=== PATIENT | female | born 2005 | race Caucasian/White ===

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

== ENCOUNTER 2024-01-10 19:55 | Emergency (ER) | payer OTHER, SELFPAY ==
--- NOTE | ~2024-01-10 | XR_ITS ---
HISTORY: cat bite yest; swelling; eval FB COMPARISON: None TECHNIQUE: 2 views of the left hand were performed. FINDINGS: No acute fracture is identified. The joint spaces are preserved. The carpal arcs are intact. Trace negative ulnar variance is detected. Bone mineralization is unremarkable. Subtle tissue swelling of the dorsum of the right hand and the proximal second digit. No radiopaque foreign body is identified. IMPRESSION: Soft tissue swelling, without radiopaque foreign body or acute fracture within the left hand, as nathan palma above. Reviewed, dictated and finalized at location A. [facility] [employer] IMPRESSION: Soft tissue swelling, without radiopaque foreign body or acute fracture within the left hand, as detailed above.
[2024-01-10 20:00] VITALS: BP 143/80; PULSE 90; RESP 16; TEMP 36.8; O2SAT 100
--- NOTE | 2024-01-10 20:10 | ED.ANIMALBIT ---
HPI - Animal Bite General Chief Complaint: Animal Bite Stated Complaint: cat attack Time Seen by Provider: 01/10/24 20:08 Source: patient Mode of arrival: ambulatory Limitations: no limitations History of Present Illness HPI narrative: [id number] female presents with pain and swelling sustained after a cat bite and scratch injury that occurred yesterday approximately 4:00 p.m.. She presented to urgent care. No imaging was performed although she was prescribed Augmentin and 1st dose this morning. Her last tetanus shot was in 2021. Also to dose of Tylenol. This is a CT she is fostering and it is up to date on its shots. Related Data Home Medications Medication Instructions Recorded Confirmed propranolol 40 mg tablet 40 mg PO Q12H 01/10/24 Allergies Allergy/AdvReac Type Severity Reaction Status Date / Time [id number] Antimigraine AdvReac Joint Pain Verified 01/10/24 19:56 Agents PMFSH Past Medical History Medical History Anxiety Depression Kyphosis Migraine PCOS (polycystic ovarian syndrome) Right hand dominant Surgical History Surgical History History of adenectomy Hx of tonsillectomy Family History Family History Mother Hypertension Depression Heart problem Alcoholism Grandparent Asthma Diabetes mellitus Hypertension Cerebrovascular accident Thyroid disorder Social History Social History (Updated 07/21/23 @ 15:25 by Varsha Ly MA) Smoking status: Never smoker Alcohol intake: current Alcohol use details: occasionally Substance use: never Do You Feel Safe in your Home?: Yes Lack of Transportation: No Lack of Food: Sometimes True Current Housing: I Have Housing Concerned About Future Housing: No Difficulty Paying Gas/Electric Bills: No Difficulty Paying for Meds: No Currently Unemployed: No Education: High School Diploma/GED Difficulty w/ Childcare or Family Care: No Living arrangements: with roommate(s) Occupation/Education: student Gender identity (if verbalized by the patient): Female Sexual Orientation (if Verbalized by the Patient): Straight or Heterosexual Exam Narrative: GENERAL: Well-appearing, well-nourished, and in no acute distress. HEAD: Normocephalic, atraumatic. EYES: Non injected, non icteric ENT: Nares clear, no rhinorrhea or epistaxis. NECK: Supple. CHEST: Speaking in full sentences. No respiratory distress. HEART: Regular rate and rhythm. Capillary refill intact in distal fingers. ABDOMEN: Soft, nondistended. EXTREMITIES: Finger is not held in fixed flexion or extension. She is able to extend these digits. Has some difficulty with flexion SKIN: Warm, dry. Scattered superficial abrasions/lacerations on bilateral forearms (L > R). Patient has warm tender erythema and swelling along the dorsum of her right hand involved in a MCP of digits 2 and 3. NEURO: No focal deficits. Alert and oriented x3. PSYCH: Normal mood and affect. Course Vital Signs Vital signs: Vital Signs Temperature 98.3 F 01/10/24 20:00 Pulse Rate 90 01/10/24 20:00 Respiratory Rate 16 01/10/24 20:00 Blood Pressure 143/80 H 01/10/24 20:00 Pulse Oximetry 100 01/10/24 20:00 Oxygen Delivery Room Air 01/10/24 20:00 Temperature 98.3 F 01/10/24 20:00 Pulse Rate 85 01/10/24 23:31 Respiratory Rate 16 01/10/24 23:31 Blood Pressure 128/76 01/10/24 23:31 Pulse Oximetry 100 01/10/24 23:31 Oxygen Delivery Room Air 01/10/24 20:00 MDM - Animal Bite MDM Narrative Medical decision making narrative: Patient presents with pain and swelling particularly in right hand after sustaining cat bite and scratches yesterday at approximately 4:00 p.m. she visited urgent care and a dose of Augmentin this morning but has continued to have swelling. Last tetanus was in 2021. In the emergency department she is afebrile with vital signs notable for hypertension. [place] signs for flexor sheath infection (flexor tenosynovitis) Finger held in slight flexion: No Fusiform swelling of affected digit: No Tenderness along flexor tendon sheath: Yes Pain with passive extension of digit: Yes Mild leukocytosis. Patient reassessed. No further swelling. Pain improved. I did discuss patient with Dr. Hoffman / plastic surgeon. Given they have only had 1 dose of Augmentin, reasonable to discharge with outpatient care recommendations, advise continuing PO Augmentin, and give return precautions. Stable for discharge. Differential Diagnosis Differential diagnosis: Likely bite by animal, cat bite and other (Cellulitis, considered flexor tenosynovitis) Lab Data Attestation: I reviewed the patient's lab results. Lab results narrative: Normal renal function 01/10/24 21:31 01/10/24 21:31 Labs: Lab Results 01/10/24 Range/Units 21:31 WBC 11.0 H (4.5-10.0) K/mm3 RBC 4.86 (4.2-5.4) M/mm3 Hgb 14.0 (12.0-15.0) g/dL Hct 43.8 (37.0-47.0) % MCV 90.1 (80-100) fl MCH 28.8 (26-34) pg MCHC 32.0 (32-36) g/dl RDW 13.4 (11.5-14.5) % Plt Count 325 (150-375) k/mm3 MPV 9.7 (7.4-10.4) fl Immature Gran % (Auto) 0.2 (0-0.5) % Neut % (Auto) 67.7 (45.5-73.1) % Lymph % (Auto) 23.3 (18.3-44.2) % [place] % (Auto) 7.6 (2.6-8.5) % Eos % (Auto) 1.0 (0-4.4) % Baso % (Auto) 0.2 (0.2-1.2) % Lymph # (Auto) 2.57 (0.9-3.2) K/mm3 [place] # (Auto) 0.8 H (0.1-0.6) K/mm3 Eos # (Auto) 0.1 (0-0.3) K/mm3 Baso # (Auto) 0.0 (0.0-0.1) K/mm3 Abs Immat Gran (auto) 0.02 (0.00-0.031) K/mm3 Absolute Neuts (auto) 7.5 H (1.3-6.7) K/mm3 Absolute Nucleated RBC 0.000 (0.0-0.012) K/mm3 Nucleated RBC % 0.0 (0.0-0.2) % PT Cancelled INR Cancelled APTT Cancelled Sodium 138 (134-143) mmol/L Potassium 3.9 (3.4-5.0) mmol/L Chloride 102 (98-107) mmol/L Carbon Dioxide 26 (22-30) mmol/L Anion Gap 10 (4-12) mmol/L BUN 16 (8-21) mg/dL Creatinine 0.60 L (0.7-1.0) mg/dL Estim Creat Clear Calc 176 ml/min Estimated GFR > 60 (59 - ) Glucose 81 (65-110) mg/dL Calcium 9.6 (8.9-10.7) mg/dL Imaging Data Attestation: I personally reviewed and interpreted this imaging study as follows: My impression: Suspect osteophyte though possible foreign body appreciable plain film imaging Radiologist's impression: Impressions Hand X-Ray 01/10/24 22:46 IMPRESSION: Soft tissue swelling, without radiopaque foreign body or acute fracture within the left hand, as detailed above. Discharge Plan Discharge Clinical Impression: Cat bite involving extremity, Leukocytosis Patient Disposition: Home, Self-Care Condition: Stable Instructions: Antibiotic Form, Animal Bite (ED), Leukocytosis (ED) Additional Instructions: Use warm compresses and elevate the affected area above the level of the heart when possible. Continue taking your Augmentin antibiotic as prescribed. Follow up with plastic/hand surgeon if necessary and return to the ED if any new/worsening symptoms such as streaking or spreading redness, fever >100.4F, unable to bend/move fingers, etc. It is safe to continue taking acetaminophen/Tylenol (maximum 4000mg/day) for pain. Prescriptions: New acetaminophen 500 mg capsule 1,000 mg PO Q6H PRN (Reason: pain) Qty: 30 0RF No Action alprazolam 1 mg tablet 1 mg PO DAILY PRN (Reason: anxiety) Qty: 30 0RF medroxyprogesterone [Provera] 10 mg tablet 10 mg PO DAILY Qty: 10 6RF metformin 500 mg tablet 1,000 mg PO BIDWMEAL 90 Days Qty: 360 3RF Rx Instructions: start out taking 1 tablet x2 wks, then increase to 1 tablet BID x 2 weeks, then 1 tab qAM/2 tabs qPM x 2 weeks, then continue taking 2 tabs BID thereafter propranolol 40 mg Tablet 40 mg PO Q12H [id number] mg capsule 1 cap PO Q4H PRN (Reason: migraine headache) Qty: 30 2RF Follow-up/Referrals: Ladonna Hoffman MD [Physician] - (Plastic surgery) Alok Vazquez MD [Primary Care Provider] - Stand Alone Forms: Work/School Release IP Time of Disposition: 23:06
--- NOTE | 2024-01-10 21:32 | PC.NURSE ---
R. hand swollen and red. Bilateral forearms have puncture wounds.
[2024-01-10] MEDS: HYDROcodone/acetaminophen (*CRX) 5-325 MG TABLET 1 TAB PO (21:41)
[2024-01-10] MEDS: AMPICILLIN SULB 3 GM/NS 100 ML 3 GM/100 ML VIAL IVPB (21:42)
[2024-01-10 21:43] LABS: Basophils Percent Auto 0.2 % (0.2-1.2); Eosinophils Absolute Auto 0.1 K/mm3 (0-0.3); Hematocrit 43.8 % (37.0-47.0); Immature Granulocyte Absolute 0.02 K/mm3 (0.00-0.031); Immature Granulocyte Percent A 0.2 % (0-0.5); Lymphocytes Absolute Auto 2.57 K/mm3 (0.9-3.2); Lymphocytes Percent Auto 23.3 % (18.3-44.2); Mean Corpuscular Hemoglobin 28.8 pg (26-34); Mean Corpuscular Volume 90.1 fl (80-100); Mean Platelet Volume 9.7 fl (7.4-10.4); Monocytes Absolute Auto 0.8 K/mm3 (0.1-0.6); Monocytes Percent Auto 7.6 % (2.6-8.5); Neutrophils Absolute Auto 7.5 K/mm3 (1.3-6.7); Neutrophils Percent Auto 67.7 % (45.5-73.1); Platelet Count Result 325 k/mm3 (150-375); Red Blood Count 4.86 M/mm3 (4.2-5.4); Red Cell Distribution Width 13.4 % (11.5-14.5)
[2024-01-10 21:53] LABS: Anion Gap 10 mmol/L (4-12); Blood Urea Nitrogen 16 mg/dL (8-21); Calcium 9.6 mg/dL (8.9-10.7); Carbon Dioxide 26 mmol/L (22-30); Chloride 102 mmol/L (98-107); Estimated CRCL calculation 176 ml/min; Estimated Glomerular Filt Rate > 60; Glucose 81 mg/dL (65-110); Potassium 3.9 mmol/L (3.4-5.0); Sodium 138 mmol/L (134-143)
[2024-01-10 23:31] VITALS: BP 128/76; PULSE 85; RESP 16; O2SAT 100
== END 2024-01-10 23:50 | disposition home or self-care (01) ==
PROVIDERS: Emergency Provider Student in an Organized Health Care Education/Training Program; PCP Emergency Medicine
DX: S61.451A Open bite of right hand, initial encounter (principal); W55.01XA Bitten by cat, initial encounter; F41.8 Other specified anxiety disorders; D72.829 Elevated white blood cell count, unspecified
CPT/HCPCS: 36415; 73120; 80048; 85025; 87040; 96365; 99284; A9270; J0295

== ENCOUNTER 2024-08-25 08:54 | Outpatient (CLI) | payer OTHER, SELFPAY ==
[2024-08-25 18:24] LABS: Alanine Aminotransferase 51 U/L (6-35); Albumin Level 4.2 g/dL (3.7-5.6); Alkaline Phosphatase 41 U/L (45-116); Anion Gap 9 mmol/L (4-12); Aspartate Amino Transferase 45 U/L (14-36); Bilirubin,Total 0.7 mg/dL (0.2-1.3); Blood Urea Nitrogen 10 mg/dL (8-21); Calcium 9.3 mg/dL (8.9-10.7); Carbon Dioxide 27 mmol/L (22-30); Chloride 102 mmol/L (98-107); Cholesterol 207 mg/dL (0-200); Estimated Glomerular Filt Rate > 60; Glucose 74 mg/dL (65-110); HDL Direct 38 mg/dL; Potassium 4.6 mmol/L (3.4-5.0); Sodium 138 mmol/L (134-143); Triglycerides 100 mg/dL (<150)
[2024-08-25 18:29] LABS: Rheumatoid Factor. < 12.0 IU/ML (<12)
[2024-08-25 18:35] LABS: LDL Cholesterol Direct 135 mg/dL
[2024-08-25 18:47] LABS: Erythrocyte Sedimentation Rate 12 mm/hr (0-20)
[2024-08-25 18:48] LABS: Hemoglobin A1C. 5.6 % (<5.7)
[2024-08-26 07:58] LABS: ANA Cascade Screen POSITIVE (NEGATIVE); Chromatin (Nucleosomal) Ab <1.0 NEG AI (<1.0 NEG); Chromatin Antibody Charge YES; DNA (ds) Antibody Charge YES; RNP Antibody 1.8 POS AI (<1.0 NEG); RNP Antibody Charge YES; Sm Antibody <1.0 NEG AI (<1.0 NEG); Sm Antibody Charge YES; Sm/RNP Antibody <1.0 NEG AI (<1.0 NEG); Sm/RNP Antibody Charge YES
== END 2024-08-25 08:55 | disposition home or self-care (01) ==
LOC: ANHGOSHLAB 08:56
PROVIDERS: PCP Family Medicine; Visit Provider Family Medicine
DX: E88.819 Insulin resistance, unspecified (principal); M25.60 Stiffness of unspecified joint, not elsewhere classified
CPT/HCPCS: 36415; 80053; 80061; 83036; 85652; 86038; 86225; 86235; 86364; 86430

== ENCOUNTER 2024-08-30 11:16 | Outpatient (CLI) | payer OTHER, SELFPAY ==
--- OUTSIDE RECORDS SUMMARY | 2024-08-30 11:23 | XMS_ITS | Encounter Summary ---
Author Organization [facility] Healthcare Address [address] [place] [address] Care Team Providers Care Applied Psychology Chair Name Role Phone Transcribed Order, Provider Primary Care Provide r Unavailable Encounter Details Date Type Department Care Team (Late st Contact Info) Description 08/22/2024 Telephone [facility] [address], [place] [address] Minerva Cárdenas MA Social History Tobacco Use Types Packs/Day Years Used Date Smoking Tobacco: Never Smokeless Tobacco: Never Comments Unknown Sex and Gender Information Value Date Recorded Sex Assigned at Not on file Legal Sex Female 2:37 PM KIER TENDER Gender Identity Not on file Sexual Orientation Not on file documented as of this encounter Miscellaneous Notes * Telephone Encounter - Minerva Cárdenas MA - 08/30/2024 8:32 AM CDT Qulipta 30mg approved until 08/28/25 Patient informed and scanned in the approval letter * Telephone Encounter - Minerva Cárdenas MA - 08/25/2024 1:07 PM CDT Appeal 08/25/24 * Telephone Encounter - Minerva Cárdenas MA - 08/22/2024 9:25 AM CDT PA started for Qulipta on covermymeds Castillo: [id number] documented in this encounter Plan of Treatment Not on file documented as of this encounter Visit Diagnoses Not on filedocumented in this encounter Care Teams Applied Psychology Chair Relationship Specialty Start Date End Date Transcribed Order, Provider PCP - General 04/17/24 documented as of this encounter
--- OUTSIDE RECORDS SUMMARY | 2024-08-30 11:23 | XMS_ITS | Clinical Summary ---
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 Role Phone Transcribed Order, Provider Primary Care Provide r Unavailable Allergies Active Allergy Reactions Criticality Noted Date Comments Amitriptyline Palpitations,Dizziness Low 05/24/2024 Sumatriptan Chest tightness,Dizziness,Headache Medium 05/24/2024 Medications propranoloL (INDERAL) 40 mg tablet Take 1 tablet (40 mg total) by mouth daily 30 tablet 3 5 Active atogepant (Qulipta) 30 mg tablet Take 30 mg by mouth daily 30 tablet 3 5 Active propranoloL (INDERAL) 40 mg tablet Take 1 tablet (40 mg total) by mouth 3 (three) times a day 08/19/19 25 Discontinu ed(Reorder ) butalbital-acet aminophen-caffe ine-codeine (FIORICET WITH CODEINE) [id number] mg per capsule Take 1 capsule by mouth every 4 (four) hours as needed for headaches 08/19/19 25 Discontinu ed(Patient Reported) topiramate (TOPAMAX) 50 mg tabletIndicatio ns:Chronic migraine without aura without status migrainosus, not intractable Take half tablet (25 mg) po twice a day for one week, then one tablet po twice a day 60 tablet 3 5 08/19/19 25 Discontinu ed(Other) rimegepant (NURTEC ODT) tablet,disinteg ratingIndicatio ns:Chronic migraine without aura without status migrainosus, not intractable Take 1 tablet (75 mg total) by mouth daily as needed (for migraine) 8 tablet 5 5 08/19/19 25 Discontinu ed(Other) galcanezumab-gn lm (Emgality Pen) 120 mg/mL pen injector Inject 120 mg under the skin every 30 (thirty) days 1 mL 3 5 08/19/19 25 Discontinu ed(Alterna te therapy) Active Problems Problem Noted Date Diagnosed Date Neck pain 08/18/2024 Chronic migraine without aur a without status migrainosus, not intractable 05/24/2024 Encounters Date Type Department Care Team Description 08/22/2024 Telephone [facility] [address] [place] [address] [address] [place] [address] Minerva Cárdenas MA 08/18/2024 1:45 PM CDT Office Visit [facility] [address] [place] [address] [address] [place] [phone] Osmar Zarco MD Chronic migraine without aura without status migrainosus, not intractable (Primary Dx); Neck pain 06/09/2024 Orders Only [facility] [address] [place] [address] [address] [place] [address] Osmar Zarco MD 06/08/2024 Telephone [facility] [address] [place] [address] [address] [place] [address] Carmen Belle MA from Last 3 Months Surgical History Surgery Date Site/Laterality Comments TONSILLECTOMY Medical History Medical History Date Comments Headache, tension-type Migraine Anemia Abuse, drug or alcohol (HCC) Depression PTSD (post-traumatic stress disorder) AJAY (generalized anxiety disorder) Family History Medical History Relation Name Comments Hypertension Mother guillian barre syndrome Mother Relation Name Status Comments Mother Social History Tobacco Use Types Packs/Day Years Used Date Smoking Tobacco: Never Smokeless Tobacco: Never Tobacco Cessation:Counseling Given: Not Answered Comments Unknown Sex and Gender Information Value Date Recorded Sex Assigned at Not on file 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 (Girls, 2-20 Years) Last Filed Vital Signs Vital Sign Reading Time Taken Comments Blood Pressure 118/82 08/18/2024 2:06 PM CDT Pulse 93 08/18/2024 2:06 PM CDT Temperature - - Respiratory Rate - - Oxygen Saturation 98% 08/18/2024 2:06 PM CDT Inhaled Oxygen Concentration - - Weight 117.3 kg (258 lb 9.6 oz) 08/18/2024 2:06 PM CDT Height 157.5 cm (5' 2.01) 08/18/2024 2:06 PM CD T Body Mass Index 47.29 08/18/2024 2:06 PM CDT Plan of Treatment Health Maintenance Due Date Last Done Comments Depression Screening 2004 Hepatitis C Screening 2004 DTaP/Tdap/Td Vaccine (1 - Tdap) 10/29/2015 Varicella Vaccines (1 of 2 - 13+ 2-dose series) 2017 HPV Vaccines (1 - 3-dose series) 10/29/2019 Meningococcal B Vaccine (1 o f 2 - Standard) 2020 Regular Well Visit/Exam 18-64 2022 Influenza Vaccine (#1) 2024 12/01/2023 Hepatitis B Screening Completed 08/16/2023 Meningococcal Vaccine Aged Out No marisa jose l eligible based on patient's age to complete this topic Pneumococcal vaccine <65 Aged Out No longer eligible based on patient's age to complete this topic Insurance * Guarantor: Kendra Nava Account Type Relation to Patient Date of Phone Billing Address Personal/Family Self [address] [place] [address] [employer] [facility] HMO Care Teams 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
--- OUTSIDE RECORDS SUMMARY | 2024-08-30 11:23 | XMS_ITS | Referral Summary ---
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 Name Role Phone Transcribed Order, Provider Primary Care Provide r Unavailable Encounters Date Type Department Care Team Description 08/22/2024 Telephone [facility] [address] [place] [address] [address] [place] [phone] Minerva Cárdenas MA 08/18/2024 1:45 PM CDT Office Visit [facility] [address] [place] [phone] Osmar Zarco MD Chronic migraine without aura without status migrainosus, not intractable (Primary Dx); Neck pain 06/09/2024 Orders Only [facility] [address] [place] [phone] Osmar Zarco MD 06/08/2024 Telephone [facility] [address] [place] [phone] Carmen Belle MA from Last 3 Months Allergies Active Allergy Reactions Criticality Noted Date Comments Amitriptyline Palpitations,Dizziness Low 05/24/2024 Sumatriptan Chest tightness,Dizziness,Headache Medium 05/24/2024 Medications propranoloL (INDERAL) 40 mg tablet Take 1 tablet (40 mg total) by mouth daily 30 tablet 3 5 Active atogepant (Qulipta) 30 mg tablet Take 30 mg by mouth daily 30 tablet 3 06/20/202 5 Active propranoloL (INDERAL) 40 mg tablet Take 1 tablet (40 mg total) by mouth 3 (three) times a day 08/19/19 Discontinu ed(Reorder ) butalbital-acet aminophen-caffe ine-codeine (FIORICET WITH CODEINE) [id number] mg per capsule Take 1 capsule by mouth every 4 (four) hours as needed for headaches 08/19/19 Discontinu ed(Patient Reported) topiramate (TOPAMAX) 50 mg tabletIndicatio ns:Chronic migraine without aura without status migrainosus, not intractable Take half tablet (25 mg) po twice a day for one week, then one tablet po twice a day 60 tablet 3 5 08/19/19 Discontinu ed(Other) rimegepant (NURTEC ODT) tablet,disinteg ratingIndicatio ns:Chronic migraine without aura without status migrainosus, not intractable Take 1 tablet (75 mg total) by mouth daily as needed (for migraine) 8 tablet 5 5 08/19/19 Discontinu ed(Other) galcanezumab-gn lm (Emgality Pen) 120 mg/mL pen injector Inject 120 mg under the skin every 30 (thirty) days 1 mL 3 5 08/19/19 Discontinu ed(Alterna te therapy) Active Problems Problem Noted Date Diagnosed Date Neck pain 08/18/2024 Chronic migraine without aur a without status migrainosus, not intractable 05/24/2024 Social History Tobacco Use Types Packs/Day Years Used Date Smoking Tobacco: Never Smokeless Tobacco: Never Tobacco Cessation:Counseling Given: Not Answered Comments Unknown Sex and Gender Information Value Date Recorded Sex Assigned at Not on file 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
[2024-08-30 12:30] LABS: Hematocrit 43.0 % (37.0-47.0); Hemoglobin 13.5 g/dL (12.0-15.0); Immature Granulocyte Percent A 0.4 % (0-0.5); Lymphocytes Absolute Auto 1.76 K/mm3 (0.9-3.2); Mean Corpuscular HGB Conc 31.4 g/dl (32-36); Mean Corpuscular Hemoglobin 27.2 pg (26-34); Mean Corpuscular Volume 86.7 fl (80-100); Nucleated Red Blood Cells Absolute Auto 0.000 K/mm3 (0.0-0.012); Nucleated Red Blood Cells Perc 0.0 % (0.0-0.2); Platelet Count Result 357 k/mm3 (150-375); Red Blood Count 4.96 M/mm3 (4.2-5.4); White Blood Count 5.7 K/mm3 (4.5-10.0)
[2024-08-30 13:46] LABS: Ferritin 14.00 ng/mL (6.24-137)
[2024-08-30 14:25] LABS: Hepatitis B Surface Antigen Negative (Negative)
[2024-08-30 14:30] LABS: HAV RESULT Negative (Negative); Hepatitis B Core IgM Result Negative (Negative)
== END 2024-08-30 11:17 | disposition home or self-care (01) ==
LOC: ANHGOSHLAB 11:17
PROVIDERS: PCP Family Medicine; Visit Provider Family Medicine
DX: R79.89 Other specified abnormal findings of blood chemistry (principal); M35.1 Other overlap syndromes
CPT/HCPCS: 36415; 80074; 81596; 82728; 85025

== ENCOUNTER 2024-09-05 08:18 | Outpatient (CLI) | payer OTHER, SELFPAY ==
--- NOTE | ~2024-09-05 | US_ITS ---
Limited Abdominal Sonogram: Real-time sonographic imaging of the right upper quadrant was performed. Clinical History: Abnormal findings of blood chemistry Findings: The liver appears echogenic, with no evidence of mass lesion or bile duct dilatation. Main portal vein demonstrates normal direction of flow. The gallbladder is well distended, and appears no rmal with no evidence of gallstone or wall thickening. The common bile duct measures 4 mm. The visua lized pancreas, aorta, and IVC are unremarkable. Impression: Diffuse fatty infiltration of liver. Reviewed, dictated and finalized at location M. Impression: Diffuse fatty infiltration of liver.
== END 2024-09-05 08:19 | disposition home or self-care (01) ==
LOC: GOSHIMG 08:18
PROVIDERS: PCP Family Medicine; Visit Provider Family Medicine
DX: R79.89 Other specified abnormal findings of blood chemistry (principal); M35.1 Other overlap syndromes; K76.0 Fatty (change of) liver, not elsewhere classified
CPT/HCPCS: 76705

== ENCOUNTER 2024-10-05 09:27 | Emergency (ER) | payer OTHER, SELFPAY ==
[2024-10-05 09:45] VITALS: BP 105/67; PULSE 92; RESP 18; TEMP 37.8; O2SAT 99
--- NOTE | 2024-10-05 09:50 | ED_ITS ---
HPI - URI/Sore Throat General Chief Complaint: Upper Respiratory Infection Stated Complaint: Sore Throat/Cough/Headache Time Seen by Provider: 10/05/24 09:50 Source: patient and RN notes reviewed Mode of arrival: ambulatory Limitations: no limitations History of Present Illness HPI Narrative: 18-year-old female presented for complaint of sore throat, headache, body aches, sinus pressure/congestion, cough, fever/chills. Onset yesterday. Denies sob, wheezing, n/v/d. Took cough drops for symptoms. MD elicited complaint: cough Related Data Home Medications ?Medication ?Instructions ?Recorded ?Confirmed ?Last Taken ?Type atogepant 30 mg tablet (Qulipta) 30 mg PO DAILY 08/24/24 10/05/24 Unknown History hydroxychloroquine 200 mg tablet mg PO 10/05/24 Unknown History Allergies Allergy/AdvReac Type Severity Reaction Status Date / Time [id number] Antimigraine AdvReac Joint Pain Verified 10/05/24 09:40 Agents Review of Systems Review of Systems: CONSTITUTIONAL: Endorses malaise, body aches, chills, sweats, fever EYES: Denies visual changes, redness, or discharge ENT: Reports rhinorrhea, congestion, sinus pain, otalgia, sore throat CARDIOVASCULAR: Denies chest pain, palpitations, edema RESPIRATORY: Reports cough, post nasal drainage. Denies dyspnea GASTROINTESTINAL: Denies abdominal pain, nausea, vomiting, diarrhea SKIN: Denies rash or itching NEUROLOGIC: Denies headache PMFSH Past Medical History Medical History Right hand dominant Kyphosis PCOS (polycystic ovarian syndrome) Depression Migraine Anxiety Surgical History Surgical History History of adenectomy Hx of tonsillectomy Family History Family History Mother Hypertension Depression Heart problem Alcoholism Grandparent Asthma Diabetes mellitus Hypertension Cerebrovascular accident Thyroid disorder Social History Social History (Updated 10/05/24 @ 10:04 by Krysta Solis APRN) Smoking status: Current some day smoker Tobacco type: cigarettes and e-cigarettes/vaping Alcohol intake: current Alcohol use details: occasionally Substance use: former Substance use type: marijuana Current Housing: Decline to Answer Concerned About Future Housing: Decline to Answer Difficulty Paying Gas/Electric Bills: Decline to Answer Difficulty Paying for Meds: Decline to Answer Currently Unemployed: Decline to Answer Education: Decline to Answer Difficulty w/ Childcare or Family Care: Decline to Answer Living arrangements: with roommate(s) Occupation/Education: student 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 EYES: conjunctivae clear ENT: Mucous membranes moist. TMs pearly huggins with dull light reflex bilaterally; no tragal tenderness. Oropharynx not erythematous without lesions or exudate, no drooling, no hoarseness, no trismus, uvula midline. No tripod positioning, muffled voice, soft palate or pharyngeal wall bulging NECK: Supple. No lymphadenopathy CHEST: Clear to auscultation, breath sounds equal. No wheezing, rhonchi, rales, or stridor. No respiratory distress, speaks in full sentences. HEART: Regular rate and rhythm. No murmur heard. SKIN: Warm, dry, no rash. NEURO: Alert and oriented x3. PSYCH: Normal mood and affect Course Course Emergency Course: Patient is aware of diagnosis, understands and agrees to treatment plan. Anticipatory guidance given. Patient agrees to follow-up as directed and is aware of reasons to seek care at the emergency department. Portions of this record may have been created with voice recognition software Level of Care: Express Care Visit Vital Signs Vital signs: Vital Signs Temperature 100.1 F H 10/05/24 09:45 Pulse Rate 92 10/05/24 09:45 Respiratory Rate 18 10/05/24 09:45 Blood Pressure 105/67 10/05/24 09:45 Pulse Oximetry 99 10/05/24 09:45 Temperature 100.1 F H 10/05/24 09:45 Pulse Rate 92 10/05/24 09:45 Respiratory Rate 18 10/05/24 09:45 Blood Pressure 105/67 10/05/24 09:45 Pulse Oximetry 99 10/05/24 09:45 reviewed MDM - URI/Sore Throat MDM Narrative Medical decision making narrative: Discussed physical exam findings, POS covid. Advised supportive measures and signs/symptoms to go to the ER. Pt is appropriate for outpt treatment and f/u. Differential Diagnosis Differential diagnosis: Likely upper respiratory infection, sinusitis, viral infection, bronchitis, influenza and pharyngitis Discharge Plan Discharge Clinical Impression: COVID-19 Patient Disposition: Home Condition: Stable Instructions: Antibiotic Form, COVID-19 (Coronavirus Disease 2019) (ED) Additional Instructions: Your rapid COVID test was positive today. The following updated recommendations have been made by the CDC and local Health Departments, regarding COVID-19: - When people get sick with a respiratory virus, they stay home and away from others. - Return to normal activities when, for at least 24 hours, symptoms are improving overall, and if a fever was present, it has been gone without use of a fever-reducing medication. - Once people resume normal activities, they are encouraged to take additional prevention strategies for the next 5 days to curb disease spread, such as taking more steps for immersion metalcleaner air, enhancing hygiene practices, wearing a well-fitting mask, keeping a distance from others, and/or getting tested for respiratory viruses. - Enhanced precautions are especially important to protect those most at risk for severe illness, including those over 65 and people with weakened immune systems. Rest, stay hydrated. Tylenol and ibuprofen every 8 hours as needed Flonase/nasal spray, Zyrtec, cough syrup cold/flu medications for symptoms as needed Discuss with your employer their return to work restrictions Follow up with your primary care provider, call to schedule an appointment. Go to the ER for worsening symptoms or concerns. Patient Language: Telugu Prescriptions: No Action hydroxychloroquine 200 mg tablet PO Qulipta 30 mg tablet 30 mg PO DAILY propranolol 40 mg tablet 40 mg PO DAILY Qty: 60 0RF Rx Instructions: LAST REFILl UNTIL SEEN metformin 500 mg tablet 1,000 mg PO .pm 90 Days Qty: 90 3RF Zepbound 2.5 mg/0.5 mL pen injector 2.5 mg subcut WEEKLY Qty: 2 1RF Wegovy 0.25 mg/0.5 mL pen injector 0.25 mg subcut WEEKLY Qty: 2 1RF Zepbound 2.5 mg/0.5 mL solution 2.5 mg subcut WEEKLY 28 Days Qty: 2 6RF Rx Instructions: + injection supplies Follow-up/Referrals: Ila Valencia MD [Primary Care Provider] - Time of Disposition: 09:58
[2024-10-05 09:55] LABS: EDCOVIDSCREEN Positive (Negative); EDSTREPNEGPOS1 Negative (Negative)
[2024-10-05 10:00] LABS: EDINFLUASCREEN Negative (Negative); EDINFLUBSCREEN Negative (Negative)
== END 2024-10-05 10:07 | disposition home or self-care (01) ==
PROVIDERS: Emergency Provider Nurse Practitioner Family; PCP Family Medicine
DX: U07.1 COVID-19 (principal); E28.2 Polycystic ovarian syndrome; F17.290 Nicotine dependence, other tobacco product, uncomplicated
CPT/HCPCS: 87081; 87426; 87804; 87880; 99213; G0463

== ENCOUNTER 2024-10-17 14:41 | Outpatient (NON) | payer OTHER, SELFPAY ==
--- OUTSIDE RECORDS SUMMARY | 2024-10-17 15:06 | XMS_ITS | Clinical Summary ---
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 Role Phone Ila Valencia MD Primary Care Provider + Allergies Active Allergy Reactions Criticality Noted Date Comments Amitriptyline Palpitations,Dizziness Low 05/24/2024 Sumatriptan Chest tightness,Dizziness,Headache Medium 05/24/2024 Medications propranoloL (INDERAL) 40 mg tablet Take 1 tablet (40 mg total) by mouth daily 30 tablet 3 08/18/2024 Active atogepant (Qulipta) 30 mg tablet Take 30 mg by mouth daily 30 tablet 3 08/18/2024 Active Active Problems Problem Noted Date Diagnosed Date Neck pain 08/18/2024 Chronic migraine without aur a without status migrainosus, not intractable 05/24/2024 Encounters Date Type Department Care Team Description 09/13/2024 9:30 AM CDT Lab [facility] [address] [place] [id number] 09/13/2024 Orders Only [facility] at [address] [phone] Dayna Sierra MD 08/22/2024 Telephone [facility] [address] [place] [address] [address] [place] [address] Minerva Cárdenas MA 08/18/2024 1:45 PM CDT Office Visit [facility] [address] [place] [address] [address] [place] [address] Osmar Zarco MD Chronic migraine without aura without status migrainosus, not intractable (Primary Dx); Neck pain from Last 3 Months Surgical History Surgery [...] on file Legal Sex Female 2:37 PM [employer] Gender Identity Not on file Sexual Orientation Not on file Obstetrics History Growth Chart Information Age Height Weight Wqdhea-ldk-dvmm th Percentile BMI Percentile Head Circum Head Circum Percentile Date 18 years 157.5 cm (5' 2.01) 117.3 kg (258 lb 9.6 oz) 99.78%* 2024 18 years 157.5 cm (5' 2) 116.6 kg (257 lb) 99.79%* 2024 * [facility] (Girls, 2-20 Years) Last Filed Vital [...] on patient's age to complete this topic Procedures Procedure Name Priority Date/Time Associated Diagnosis Comments HLA-B*27 TYPING FOR ANKYLOSING SPONDYLITIS Routine 09/13/2024 9:36 AM CDT BLOOD MISC TO MCGREGOR Routine 09/13/2024 9: 36 AM CDT BLOOD MISC TO MCGREGOR Routine 09/13/2024 9: 36 AM CDT SJOGRENS SYNDROME-B ANTIBODY Routine 09/13/2024 9:36 AM CDT LUPUS ANTICOAGULANT PANEL PLUS REFLEXES Routine 09/13/2024 9:36 AM CDT CARDIOLIPIN ANTIBODY, IGG AND IGM Routine 09/13/2024 9:36 AM CDT CYCLIC CITRUL PEPTIDE ANTIBODY, IGG Routine 09/13/2024 9:36 AM CDT SCL 70 ANTIBODIES Routine 09/13/2024 9:3 6 AM CDT CREATINE KINASE (CK), TOTAL Routine 09/13/2024 9:36 AM CDT BETA 2 GLYCOPROTEIN ANTIBODY, IGG, IGM Routine 09/13/2024 9:36 AM CDT G6PD QUALITATIVE WITH REFLEX TO QUANTITATIVE Routine 09/13/2024 9:36 AM CDT CENTROMERE ANTIBODY, IGG Routine 09/13/2024 9:36 AM CDT CSAI QUALITATIVE WITH REFLEX TO CASI QUANTITATIVE Routine 09/13/2024 9:36 AM CDT CRP (ACUTE PHASE) Routine 09/13/2024 9:3 6 AM CDT C3 COMPLEMENT Routine 09/13/2024 9:36 AM CDT C4 COMPLEMENT Routine 09/13/2024 9:36 AM CDT SJOGRENS SYNDROME-A ANTIBODY Routine 09/13/2024 9:36 AM CDT URINALYSIS AND REFLEX TO MICROSCOPIC AND CULTURE Routine 09/13/2024 9:36 AM CDT from Last 3 Months Results * Lupus Anticoagulant Panel plus Reflexes (09/13/2024 9:36 AM CDT) PT 12.2 9.7 - 13.0 sec Comment:Testing performed by : [facility], [address] [place] [address], [id number] INR 1.13 0.90 - 1.20 [facility] Comment: Interpretive data Oral anticoagulant therapeutic ranges: Venous thromboembolism prophylaxis or treatment: 2.0-3.0 CARDIOLOGY Standard range: 2.0-3.0 High-intensity range: 2.5-3.5 Refer to indication-specific guidelines for appropriate target ranges for prosthetic heart valve replacement. Current interpretive data was last revised on 2019. Testing performed by: [facility], [address] [place] [address]., [id number] aPTT 34 28 - 38 sec [facility] Comment: Interpretive Data Heparin therapeutic range: 66.0 - 100.0 seconds. Range based on correlation with therapeutic heparin activity range of 0.3 - 0.7 Units/mL. Current interpretive data was last revised on 2022. Testing performed by: [facility], [address] [place]., [address] DRVVT screen ratio 1.02 0.00 - 1.20 Ratio [facility] Comment:Testing performed by : [facility], [address] [facility], [place]., [address] SCT Screen Ratio 1.03 0.00 - 1.16 Ratio [facility] Comment:Testing performed by : [facility], [address] [place]., [address] Lupus anticoagulant, interp Negative [facility] Comment: Interpretive data Lupus anticoagulants (LA) are acquired autoantibodies that interfere with invitro clotting in a phospholipid-dependent manner and are associated with an increased risk of thromboembolic events and complications. Routine APTT and PT reagents are not sensitive to inhibition by LA, and should not be used as screening tests. The laboratory follows ISTH 2009 guidelines (Johno, 2009) for LA testing and interpretation: Two sensitive methods performed in parallel improve sensitivity. One activates the intrinsic pathway (Silica-APTT) and one activates the common pathway (dilute Lazaro's viper venom time - dRVVT). Each method begins with a SCREEN step, and if neither is prolonged, no further testing is performed and the interpretation is: NO LA DETECTED. If either screening test is prolonged, then additional steps are performed to provide specificity. A POSITIVE LA result occurs if either one or both tests produce a positive CONFIRM result. An INDETERMINATE result means results cannot distinguish between coagulopathy and a weak LA. Consider retesting when PT/INR is less prolonged, if clinical indicated. To support laboratory confirmation of antiphospholipid syndrome, persistence of a positive LA result should be verified by repeat testing at least 12 weeks later (Michael, 2006). Prior to LA testing, the laboratory screens patient plasma samples for evidence of heparin contamination, which is neutralized prior to LA testing, and the following interfering conditions which require canceling LA testing: INR >3.0, fibrinogen < 100 mg/dl, use of direct oral or IV anticoagulants other than heparin. References: 1) Risa V, Gianni A, [place] JH, Ortel TL, Fredo M, De Deniz PG. Update of the guidelines for lupus anticoagulant detection. J Thromb Haemost. 2009; 7:3904-4480. 2. Michael Sanchez al. International consensus statement on an update of the classification criteria for definite antiphospholipid syndrome (APS). J Thromb Haemost. 2006; 4:295-306. Current interpretive data was last revised on 2018 Testing performed by: [facility], [address] [place]., [address] Blood 09/13/2024 9:36 AM CDT 09/13/2024 1:56 PM CDT us Dayna Sierra MD LAB BLOOD ORDERABLES Final Resul t Performing Organization Address [facility] Phone Number [facility] [address] Department [place] [address] * G6PD qualitative with reflex to quantitative (09/13/2024 9:36 AM CDT) G6PD Normal Normal Comment: Interp data: G6PD activity should be interpreted in the context of a patient's hematocrit. Hematocrit < 20% may lead to a falsely deficient result, while hematocrit > 50% may lead to a falsely normal result. Current interpretive data was last revised on 2019. Testing performed by: [facility], [address] [place]., [address] Blood 09/13/2024 9:36 AM CDT 09/13/2024 7:11 PM CDT Result Alejandra Sierra MD LAB BLOOD ORDERABLES Final Resul t Performing Organization Address [facility] de Phone Number [facility] [address] Department [place] [address] * CASI ab ql w/rflx to CASI qn (09/13/2024 9:36 AM CDT) CASI Negative Comment: Interpretive Data Normal range for CASI Qualitative Antibody = Negative. 1. CASI is performed using indirect immunofluorescence against HEp-2 cells 2. CASI titers are performed on all positive qualitative results. 3. A significantly positive CASI result is defined as a positive nuclear fluorescence at a titer of 1:80 or greater. 4. 15% of normal people above age 65 have significantly positive CASI results. 5% or less of normal people age 65 or under have significantly positive CASI results. Current interpretive data was last revised on 2019. Testing performed by: [facility], [address] [facility], [place]., [address] Blood 09/13/2024 9:36 AM CDT 09/13/2024 7:21 PM CDT us Dayna Sierra MD LAB BLOOD ORDERABLES Final Resul t [facility] [address] Department [place] [address] * HLA-B*27 typing for ankylosing spondylitis (09/13/2024 9:36 AM CDT) HLA-B27 interp HLA-B*27 is Negative. HISTOTRAC 09/13/2024 9:36 AM CDT 09/19/2024 11:36 AM CDT Narrative HISTOTRAC - 09/19/2024 11:36 AM CDT HLA-B typing is performed using the reverse sequence specific oligonucleotide (r-SSO) method, which is based on an FDA approved IVD kit and validated by the [facility] laboratory. Interpretive comments: HLA-B*27 positivity confers increased risk for ankylosing spondylitis or nonradiographic axial spondyloarthritis. The absence of HLA-B*27 may help rule out these diagnoses Expected: HLA-B*27 has been found in 74% to 89% of patients with either nonradiographic axial spondyloarthritis or ankylosing spondylitis. The absolute risk of spondyloarthritis in persons with HLA-B*27 is 2% to 10%. (N Engl J Med 2016;374:2563-74) Testing performed at the [facility], [facility], [address]th floor, [place], [address]. [facility] # [id number]. Esther Vaughn, Ph.D., Sharepoint Engineer, HLA Laboratory Ruddy Zarco M.D., Ph.D., Senior Research Project Manager, [facility] Laboratory Bette Cummings, Ph.D., CLIA Senior Research Project Manager, [facility] Current methodology and interpretive comments were last revised on 09/21/2016 us Dayna Sierra MD LAB BLOOD ORDERABLES Final Resul t HISTOTRAC * Beta 2 glycoprotein antibody, IgG, IgM (09/13/2024 9:36 AM CDT) Beta-2 glycoprotein I, IgG <1.4 <=19.9 units/mL Comment: Interpretive Data Negative: <20 U/mL Positive: > or = 20 U/mL Beta-2 glycoprotein 1 (Beta-2 GP1) antibodies are a more specific marker of thrombotic risk. It is expected that some samples will be ACL positive and Beta- 2 [id number]. In order to improve specificity, the International Congress on Antiphospholipid Antibodies recommends Beta-2 GP1 antibodies of IgG or IgM isotype (> the 99th percentile), obtained twice, at least 12 weeks apart, to support a diagnosis of antiphospholipid syndrome. The cutoff for this assay was developed from data based on the 99th percentile. These results were obtained with the [employer] System. Beta 2GP1 IgG values obtained with different manufacturers' assay methods may not be used interchangeably. Current interpretive data was last revised on 2016. Testing performed by: [facility], [address] [place] [place] [address] Beta-2 glycoprotein I, IgM 0.9 <=19.9 units/mL [facility] Comment: Interpretive Data Negative: <20 U/mL Positive: > or = 20 U/mL Beta- 2 glycoprotein 1 (Beta-2 GP1) antibodies are a more specific marker of thrombotic risk. It is expected that some samples will be ACL positive and Beta- 2 GP1 negative. In order to improve specificity, the International Congress on Antiphospholipid Antibodies recommends Beta-2 GP1 antibodies of IgG or IgM isotype (> the 99th percentile), obtained twice, at least 12 weeks apart, to support a diagnosis of antiphospholipid syndrome. The cutoff for this assay was developed from data based on the 99th percentile. The Beta-2 GP1 IgM test can produce false positive results due to cross-reactivity with Rheumatoid factor. These results were obtained with the [employer] 2200 System. Beta-2 GP1 IgM values obtained with different manufacturers' assay methods may not be used interchangeably. Current interpretive data was last revised on 2016. Testing performed by: [facility], [address] [place]., [address] Blood 09/13/2024 9:36 AM CDT 09/13/2024 7:14 PM CDT us Dayna Sierra MD LAB BLOOD ORDERABLES Final Resul t Performing Organization Address [facility] Co de Phone Number [facility] [address] [place] [address] * BLOOD MISC TO MCGREGOR (09/13/2024 9:36 AM CDT) Test name, chem AB2GP Beta-2 Glycoprotein 1 Antibodies, IgA, Serum [place] ref Lab Misc See Footnote [facility] Comment: Test Result Flag Unit RefValue Beta 2 GP1 Ab IgA, S <9.4 ION -- REFERENCE VALUE -- <15.0 (Negative) Test Performed by: [place] [id number] [employer]: Germania Thurman Ph.D.; CLIA# [id number] Blood 09/13/2024 9:36 AM CDT 09/13/2024 3:49 PM CDT us Dayna Sierra MD LAB BLOOD ORDERABLES Final Resul t Performing Organization Address [facility] Co de Phone Number [facility] [address] [place] [address] [place] ref Lab * BLOOD MISC TO MCGREGOR (09/13/2024 9:36 AM CDT) Test name, chem ACLIP Phospholipid (Cardiolipin) Antibodies, IgA, [place] ref Lab Misc See Footnote [facility] Comment: Test Result Flag Unit RefValue Phospholipid Ab IgA, S <9.4 APL -- REFERENCE VALUE -- <15.0 (Negative) Test Performed by: [facility] [address] [place] [address] [employer]: Germania Thurman Ph.D.; CLIA# [id number] Blood 09/13/2024 9:36 AM CDT 09/13/2024 1:34 PM CDT us Dayna Sierra MD LAB BLOOD ORDERABLES Final Resul t Performing Organization Address City/[facility]/ZIP Co de Phone Number [facility] [address] [place] [address] [place] ref Lab * SCL 70 abs (09/13/2024 9:36 AM CDT) Pathologist [facility] Anti-Scl70, IgG <0.2 <=0.9 Ab Index Comment: Interpretive Data Negative: < 1.0 Ab Index Positive: > or = 1.0 Ab Index Current interpretive data was last revised on 2016. Testing performed by: [facility], [address] [place] [place] [address] Blood 09/13/2024 9:36 AM CDT 09/13/2024 7:12 PM CDT us aDyna Sierra MD LAB BLOOD ORDERABLES Final Resul t [facility] [address] Department [employer] [place] [address] * C4 complement (09/13/2024 9:36 AM CDT) Complement C4 28 10 - 40 mg/dL Blood 09/13/2024 9:36 AM CDT 09/13/2024 1:11 PM CDT Dayna Sierra MD LAB BLOOD ORDERABLES Final Resul t Performing Organization Address [facility] Co de Phone Number [facility] [address] Department [place] [address] * Centromere ab IgG (09/13/2024 9:36 AM CDT) Pathologist [facility] Anticentromere <0.2 <=0.9 Ab Index Comment:Testing performed by : [facility], [address] [place] [address]., [id number] Blood 09/13/2024 9:36 AM CDT 09/13/2024 7:20 PM CDT us Dayna Sierra MD LAB BLOOD ORDERABLES Final Resul t Performing Organization Address [facility] de Phone Number [facility] [address] Department [place] [address] * (ABNORMAL) Urinalysis reflex to microscopic and culture Urine (09/13/2024 9:36 AM CDT) Color, ur Yellow Yellow Clarity, ur Clear Clear [facility] Specific gravity, ur 1.035(H) 1.003 - 1.030 [facility] pH, urine 6.5 [facility] Comment: Interpretive Data U rine pH is affected by diet, medications, systemic acid-base disturbances, and renal tubular function. pH may affect urinary stone formation. For example, urine pH below 6.0 may help reduce the tendency for calcium phosphate stones and pH greater than 6.0 may reduce the tendency for uric acid stone formation. Source: [facility] [employer] Current Interpretive Data was last revised on 2017 Protein, ur ql Trace Negative [facility] Glucose, ur ql Negative Negative [facility] Ketones, ur Negative Negative [facility] Bilirubin, ur Negative Negative [facility] Blood, ur Negative Negative [facility] Urobilinogen, ur <2.0 <2.0 mg/dL [facility] Nitrite, ur Negative Negative [facility] Leukocyte esterase, ur Negative Negative [facility] UA reflex comment Reflex conditions for microscopic UA and culture not met. [facility] Urine 09/13/2024 9:36 AM CDT 09/13/2024 9:39 AM CDT us Dayna Sierra MD LAB MICROBIOLOGY - GENERAL ORDER JERONIMO Final Result Performing Organization Address [facility] Co de Phone Number [facility] [address] Department [place] [address] * Cyclic citrul peptide antibody, IgG (09/13/2024 9:36 AM CDT) CCP Ab <0.5 <=2.9 units/mL Comment: Interpretive data Negative: <3 units/mL Positive: > or equal to 3 units/mL Current interpretive data was last revised on 2016. Testing performed by: [facility], [address] [place]., [address] Blood 09/13/2024 9:36 AM CDT 09/13/2024 7:12 PM CDT us Dayna Sierra MD LAB BLOOD ORDERABLES Final Resul t Performing Organization Address [facility]/ZIP Co de Phone Number [facility] [address] Department [place] [address] * Cardiolipin antibody, IgG and IgM (09/13/2024 9:36 AM CDT) Cardiolipin, IgG <1.6 <=19.9 GPL U/mL Comment: Interpretive Data Negative: <20 GPL U/mL Positive: > or = 20 GPL U/mL Anticardiolipin antibodies are associated with certain clinical events including unexplained arterial and venous thromboemboli, and unexplained morbidity. However, detection of low levels of anticardiolipin antibodies occurs in both healthy individuals and patients with co-morbidities not associated with the antiphospholipid antibody (APA) syndrome including inflammatory and infectious conditions. In order to improve specificity, the International Congress on Antiphospholipid Antibodies recommends ACL antibodies of IgG or IgM isotype present in medium or high titer (e.g. > 40 GPL, or >the 99th percentile), on two or more occasions, at least 12 weeks apart, to support a diagnosis of antiphospholipid syndrome. The cutoff for this assay was developed from data based on the 99th percentile. In addition, the International Congress on Antiphospholipid Antibodies does not recommend testing for IgA ANNEMARIE. These results were obtained with the [employer] System. Cardiolipin IgG values obtained with different manufacturers' assay methods may not be used interchangeably. Current interpretive data was last revised on 2016. Testing performed by: [facility], [address] [place]., [address] Cardiolipin, IgM 0.6 <=19.9 MPL U/mL [facility] Comment: Interpretive Data Negative: <20 MPL U/mL Positive: > or = 20 MPL U/mL Anticardiolipin antibodies are associated with certain clinical events including unexplained arterial and venous thromboemboli, and unexplained morbidity. However, detection of low levels of anticardiolipin antibodies occurs in both healthy individuals and patients with co-morbidities not associated with the antiphospholipid antibody (APA) syndrome including inflammatory and infectious conditions. In order to improve specificity, the International Congress on Antiphospholipid Antibodies recommends ACL antibodies of IgG or IgM isotype present in medium or high titer (e.g. > 40 MPL, or >the 99th percentile), on two or more occasions, at least 12 weeks apart, to support a diagnosis of antiphospholipid syndrome. The cutoff for this assay was developed from data based on the 99th percentile. In addition, the International Congress on Antiphospholipid Antibodies does not recommend testing for IgA ANNEMARIE. The ACL IgM test can produce false positive results due to cross-reactivity with Rheumatoid factor, dsDNA or certain infectious disease antibodies. These results were obtained with the [employer] 2200 System. Cardiolipin IgM values obtained with different manufacturers' assay methods may not be used interchangeably. Current interpretive data was last revised on 2016. Testing performed by: [facility], [address] [place] [address]., [id number] Blood 09/13/2024 9:36 AM CDT 09/13/2024 7:14 PM CDT us Dayna Sierra MD LAB BLOOD ORDERABLES Final Resul t Performing Organization Address [facility] Co de Phone Number [facility] [address] Department [place] [address] * Sjogren's syndrome B ab (09/13/2024 9:36 AM CDT) Anti-BALDEMAR, SS-B <0.2 <=0.9 Ab Index Comment: Interpretive Data Negative: < 1.0 Ab Index Positive: > or = 1.0 Ab Index Current interpretive data was last revised on 2016. Testing performed by: [facility], [address] [place] [address]., [id number] Blood 09/13/2024 9:36 AM CDT 09/13/2024 7:12 PM CDT us Dayna Sierra MD LAB BLOOD ORDERABLES Final Resul t Performing Organization Address [facility] de Phone Number [facility] [address] [facility] [employer] [place] [address] * Sjogren's syndrome A ab (09/13/2024 9:36 AM CDT) Anti-BALDEMAR, SS-A <0.2 <=0.9 Ab Index Comment: Interpretive Data Negative: < 1.0 Ab Index Positive: > or = 1.0 Ab Index Current interpretive data was last revised on 2016. Testing performed by: [facility], [address] [place] [address]., [id number] Blood 09/13/2024 9:36 AM CDT 09/13/2024 7:12 PM CDT Result Alejandra Sierra MD LAB BLOOD ORDERABLES Final Resul t Performing Organization Address [facility] de Phone Number [facility] [address] [facility] [employer] [place], [place] [id number] * (ABNORMAL) C3 complement (09/13/2024 9:36 AM CDT) Complement C3 185(H) 90 - 180 mg/dL Blood 09/13/2024 9:36 AM CDT 09/13/2024 1:11 PM CDT Result Alejandra Sierra MD LAB BLOOD ORDERABLES Final Resul t Performing Organization Address [facility] Phone Number [place] [id number] Department [place] [address] * CRP (acute phase) (09/13/2024 9:36 AM CDT) CRP 8.2 <=10.0 mg/L Blood 09/13/2024 9:36 AM CDT 09/13/2024 1:11 PM CDT Result Alejandra Sierra MD LAB BLOOD ORDERABLES Final Resul t Performing Organization Address [facility] de Phone Number [facility] [address] Department [place], [place] [id number] * Creatine kinase (CK), total (09/13/2024 9:36 AM CDT) CK 62 30 - 200 Units/L Blood 09/13/2024 9:36 AM CDT 09/13/2024 1:11 PM CDT Result Alejandra Sierra MD LAB BLOOD ORDERABLES Final Resul t Performing Organization Address [facility] de Phone Number [facility] [address] Department [place] [address] from Last 3 Months Insurance * Guarantor: Kendra Monterroso Account Type Relation to Patient Date of Phone Billing Address Personal/Family Self 2005 [address] [place] [address] [facility] HMO Care Teams [employer] Worker Relationship Specialty Start Date End Date Ila Valencia MD [facility] [place] [address] PCP - General Family Medicine 09/13/24
== END 2024-10-17 14:42 | disposition home or self-care (01) ==
LOC: ANHGOSHLAB 14:41
PROVIDERS: PCP Family Medicine; Visit Provider Family Medicine
DX: Z11.3 Encounter for screening for infections with a predominantly sexual mode of transmission (principal)
CPT/HCPCS: 87491; 87591

== ENCOUNTER 2024-10-20 12:58 | Emergency (ER) | payer OTHER, SELFPAY ==
[2024-10-20 13:07] VITALS: BP 128/82; PULSE 88; RESP 16; TEMP 36.9; O2SAT 100
--- NOTE | 2024-10-20 13:08 | ED.SKABFB ---
HPI - Skin/Abscess/Foreign Bdy General Chief complaint: Skin/Abscess/Foreign Body Stated complaint: Ingrown Toenail Source: patient Mode of arrival: ambulatory Limitations: no limitations History of Present Illness HPI narrative: 18-year-old female presented for 2 complaints. First, she endorses the left great ingrown toenail x1 week. She is scheduled with the nutrition services associate in 3 weeks. Has been applying Neosporin and soaking and Epson salt bath. This pain is worse when walking. Says it did have some drainage, but the redness and swelling is improved today. Second, she endorses left ear pain. Onset today. Says she has had intermittent ear pain for months. Endorses sharp pain or a pressure sensation. She denies decreased hearing, tinnitus, dizziness, vomiting, fevers or chills. Related Data Home Medications ?Medication ?Instructions ?Recorded ?Confirmed ?Last Taken ?Type atogepant 30 mg tablet (Qulipta) 30 mg PO DAILY 08/24/24 10/20/24 Unknown History hydroxychloroquine 200 mg tablet 200 mg PO DAILY 10/06/24 10/20/24 Unknown History Allergies Allergy/AdvReac Type Severity Reaction Status Date / Time [id number] Antimigraine AdvReac Joint Pain Verified 10/20/24 13:10 Agents Review of Systems Review of Systems: CONSTITUTIONAL: Denies malaise, chills, or fever. EYES: Denies visual changes, redness, or discharge. ENT: Denies rhinorrhea, congestion, sinus pain, and sore throat. Reports ear pain CARDIOVASCULAR: Denies chest pain, palpitations, or edema. RESPIRATORY: Denies cough or dyspnea. GASTROINTESTINAL: Denies abdominal pain, nausea, vomiting, diarrhea SKIN:reports left great ingrown toenail MUSCULOSKELETAL: Denies myalgia. NEUROLOGIC: Denies headache. All systems reviewed & are unremarkable except as noted in HPI and below PMFSH Past Medical History Medical History Right hand dominant Kyphosis PCOS (polycystic ovarian syndrome) Depression Anxiety Surgical History Surgical History History of adenectomy Hx of tonsillectomy Family History Family History Mother Hypertension Depression Heart problem Alcoholism Grandparent Asthma Diabetes mellitus Hypertension Cerebrovascular accident Thyroid disorder Social History Social History Smoking status: Current some day smoker Tobacco type: e-cigarettes/vaping Alcohol intake: never Substance use: former Substance use type: marijuana Do You Feel Safe in your Home?: Yes Current Housing: Decline to Answer Concerned About Future Housing: Decline to Answer Difficulty Paying Gas/Electric Bills: Decline to Answer Difficulty Paying for Meds: Decline to Answer Currently Unemployed: Decline to Answer Education: Decline to Answer Difficulty w/ Childcare or Family Care: Decline to Answer Living arrangements: with roommate(s) Occupation/Education: student 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 There is no relevant family history pertinent to the presenting complaint Exam Narrative: GENERAL: Well-appearing, well-nourished, and in no acute distress. HEAD: Normocephalic EYES: PERRLA, conjunctivae clear ENT: Nares clear. Mucous membranes moist. Left TM erythematous, bulging and intact; canal not erythematous, no drainage, no tragal tenderness. Oropharynx not erythematous without lesions. no drooling, no hoarseness, no trismus, uvula midline. NECK: Supple. No lymphadenopathy CHEST: Clear to auscultation, breath sounds equal. No wheezing, rhonchi, rales, or stridor. No respiratory distress, speaks in full sentences. HEART: Regular rate and rhythm. No murmur heard. SKIN: Warm, dry, Left great toe with ingrown nail. No significant erythema no purulent drainage. Tender laterally. NEURO: Alert and oriented x3. PSYCH: Normal mood and affect Course Course Emergency Course: Patient is aware of diagnosis, understands and agrees to treatment plan. Anticipatory guidance given. Patient agrees to follow-up as directed and is aware of reasons to seek care at the emergency department. Portions of this record may have been created with voice recognition software Level of Care: Express Care Visit Vital Signs Vital signs: Vital Signs Temperature 98.5 F 10/20/24 13:07 Pulse Rate 88 10/20/24 13:07 Respiratory Rate 16 10/20/24 13:07 Blood Pressure 128/82 10/20/24 13:07 Pulse Oximetry 100 10/20/24 13:07 Temperature 98.5 F 10/20/24 13:07 Pulse Rate 88 10/20/24 13:07 Respiratory Rate 16 10/20/24 13:07 Blood Pressure 128/82 10/20/24 13:07 Pulse Oximetry 100 10/20/24 13:07 Reviewed MDM - Skin/Abscess/Foreign Bdy MDM Narrative Medical decision making narrative: Discussed physical exam findings; left AOM, ingrown toenail without significant paronychia. Advised supportive measures and signs/symptoms to go to the ER. Pt is appropriate for outpt treatment and f/u. Differential Diagnosis Differential diagnosis: Likely other (Otitis externa, TM rupture, cholesteatoma, foreign body, auricular perichondritisotitis media, bullous myringitis, mastoiditis, eustachian tube dysfunction) Discharge Plan Discharge Clinical Impression: Acute otitis media, left, Ingrown left big toenail Patient Disposition: Home Condition: Stable Instructions: Antibiotic Form, Ingrown Nail (ED), Ear Infection (ED) Additional Instructions: Ear: Take antibiotics as directed. antihistamine such as Benadryl, Zyrtec or Jocelyn for sinus congestion If you have nasal congestion you can add Flonase nasal spray, 1 spray in each nostril once daily until symptoms improve Motrin and Tylenol every 8 hours as needed to reduce fever, pain You can follow-up with research nurse Toe: Soak your toenail in warm soapy water or Epson salt bath 4 times each day. This can help with any drainage that needs to come out. Elevate the foot Continue to apply neosporin daily as needed Tylenol as needed for pain Take antibiotic as directed Please follow-up with your primary care doctor in the next 3 days. Keep scheduled appointment with nutrition services associate Go to the ER for any worsening symptoms or concerns Patient Language: German Prescriptions: New ibuprofen 800 mg tablet 800 mg PO TID PRN (Reason: pain) Qty: 15 0RF amoxicillin-pot clavulanate 875-125 mg tablet 1 tablet PO Q12H 7 Days Qty: 14 0RF No Action Qulipta 30 mg tablet 30 mg PO DAILY metformin 500 mg tablet 1,000 mg PO .pm 90 Days Qty: 90 3RF Wegovy 0.25 mg/0.5 mL pen injector 0.25 mg subcut WEEKLY Qty: 2 1RF hydroxychloroquine 200 mg tablet 200 mg PO DAILY Follow-up/Referrals: Ila Valencia MD [Primary Care Provider, [facility]] Time of Disposition: 13:19
== END 2024-10-20 13:28 | disposition home or self-care (01) ==
PROVIDERS: Emergency Provider Nurse Practitioner Family; PCP Family Medicine
DX: H66.92 Otitis media, unspecified, left ear (principal); L60.0 Ingrowing nail; F17.290 Nicotine dependence, other tobacco product, uncomplicated; E28.2 Polycystic ovarian syndrome
CPT/HCPCS: 99213; G0463

== ENCOUNTER 2024-11-10 17:17 | Emergency (ER) | payer OTHER, SELFPAY ==
[2024-11-10 17:48] VITALS: BP 114/73; PULSE 86; RESP 18; TEMP 36.7; O2SAT 100
--- NOTE | 2024-11-10 18:25 | ED_ITS ---
HPI - Skin/Abscess/Foreign Bdy General Chief complaint: Skin/Abscess/Foreign Body Stated complaint: INFECTED TOENAIL Time Seen by Provider: 11/10/24 18:10 Source: patient and RN notes reviewed Mode of arrival: ambulatory Limitations: no limitations History of Present Illness HPI narrative: 19-year-old female presents Express Care complaining of left great toe redness and swelling and drainage for the last 2 days. Patient said she recently had ingrown toenail removed from podiatry. Patient says she was told to do washes and applied Neosporin ointment to the area. Patient has noticed worsening redness, swelling, drainage your the ingrown toenail site. Patient has any fevers, eczema chills, nausea vomiting, or any other symptoms. Related Data Home Medications ?Medication ?Instructions ?Recorded ?Confirmed ?Last Taken ?Type atogepant 30 mg tablet (Qulipta) 30 mg PO DAILY 10/20/24 Unknown History hydroxychloroquine 200 mg tablet 200 mg PO DAILY 10/0610/20/24 Unknown History Allergies Allergy/AdvReac Type Severity Reaction Status Date / Time [id number] Antimigraine AdvReac Joint Pain Verified 11/10/24 18:03 Agents Review of Systems Review of Systems: CONSTITUTIONAL: Denies fever, chills, or sweats. EYES: Denies visual changes, redness, or discharge. ENT: Denies rhinorrhea, congestion, sore throat, or otalgia. CARDIOVASCULAR: Denies chest pain, palpitations, or edema. RESPIRATORY: Denies cough or dyspnea. GASTROINTESTINAL: Denies abdominal pain, nausea, vomiting, or diarrhea. GENITOURINARY: Denies dysuria or hematuria. SKIN: Denies rash or itching. Positive for wound. MUSCULOSKELETAL: Denies back pain, joint pain, or myalgia. NEUROLOGIC: Denies headache, numbness, or weakness. PSYCHIATRIC: Denies anxiety or depression. All other systems reviewed are negative, except as documented in HPI. [facility] Past Medical History Medical History Right hand dominant Kyphosis PCOS (polycystic ovarian syndrome) Depression Anxiety Surgical History Surgical History History of adenectomy Hx of tonsillectomy Family History Family History Mother Hypertension Depression Heart problem Alcoholism Grandparent Asthma Diabetes mellitus Hypertension Cerebrovascular accident Thyroid disorder Social History Social History Smoking status: Current some day smoker Tobacco type: e-cigarettes/vaping Alcohol intake: never Substance use: former Substance use type: marijuana Do You Feel Safe in your Home?: Yes Current Housing: Decline to Answer Concerned About Future Housing: Decline to Answer Difficulty Paying Gas/Electric Bills: Decline to Answer Difficulty Paying for Meds: Decline to Answer Currently Unemployed: Decline to Answer Education: Decline to Answer Difficulty w/ Childcare or Family Care: Decline to Answer Living arrangements: with roommate(s) Occupation/Education: student 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 There is no relevant family history pertinent to the patient complaint. Exam Narrative: GENERAL: This is a well-nourished, well-developed adult, in no apparent distress. They are non ill-appearing, nontoxic appearing. HEAD: normocephalic, atraumatic. EYES: Sclera clear/white. Conjunctiva normal. Vision is grossly intact. Extraocular movements intact EARS: External ears normal, Hearing grossly intact. NOSE: External nose normal THROAT: Mucous membranes moist NECK: Neck supple, CARDIOVASCULAR: Regular rate and rhythm RESPIRATORY: Respiratory rate normal, respiratory effort nonlabored, no respiratory distress SKIN: Left great toe: Small Paronychia present, erythematous extending to the DIP joint, actively draining with exudate present. Mild tenderness to palpation. Nail plate in bed intact. No induration. NEURO: awake, alert, and oriented to person, place and time. There were no obvious focal neurologic abnormalities. EXTREMITIES: No joint tenderness, effusion, or edema noted. Course Course Emergency Course: Portions of this record may have been created with voice recognition software Level of Care: Express Care Visit Vital Signs Vital signs: Vital Signs Temperature 98.1 F 11/10/24 17:48 Pulse Rate 86 11/10/24 17:48 Respiratory Rate 18 11/10/24 17:48 Blood Pressure 114/73 11/10/24 17:48 Pulse Oximetry 100 11/10/24 17:48 Temperature 98.1 F 11/10/24 17:48 Pulse Rate 86 11/10/24 17:48 Respiratory Rate 18 11/10/24 17:48 Blood Pressure 114/73 11/10/24 17:48 Pulse Oximetry 100 11/10/24 17:48 Reviewed MDM - Skin/Abscess/Foreign Bdy MDM Narrative Medical decision making narrative: Patient likely has small paronychia to the left great toe. It is actively draining. Indication for incision and drainage at this time. Does not appear to be a significant abscess. Treatment and affected with Neosporin, will prescribe mupirocin ointment. Will have patient follow-up with Podiatry next week. Discussed physical exam findings. Advised supportive measures and signs/symptoms to go to the ER. Pt is appropriate for outpt treatment and f/u. Differential Diagnosis Differential diagnosis: Likely cellulitis and other (Paronychia, paronychia with abscess, ingrown toenail) Critical Care Time Critical Care Time Critical Care Time: No Discharge Plan Discharge Clinical Impression: Acute paronychia Patient Disposition: Home Condition: Stable Instructions: Antibiotic Form, Paronychia (ED) Additional Instructions: Soak your affected foot in warm soapy water for 10-15 minutes apply the mupirocin ointment twice a day for the next week. Follow-up with Podiatry next week. Go to the ER if he developed worsening redness and swelling, pain, fevers, body aches, chills, or any serious concerns. Patient Language: Indonesian Prescriptions: New mupirocin [Centany] 2 % ointment 1 applic topical BID 7 Days Qty: 22 0RF No Action ibuprofen 800 mg tablet 800 mg PO TID PRN (Reason: pain) Qty: 15 0RF amoxicillin-pot clavulanate 875-125 mg tablet 1 tablet PO Q12H 7 Days Qty: 14 0RF Qulipta 30 mg tablet 30 mg PO DAILY metformin 500 mg tablet 1,000 mg PO .pm 90 Days Qty: 90 3RF Wegovy 0.25 mg/0.5 mL pen injector 0.25 mg subcut WEEKLY Qty: 2 1RF hydroxychloroquine 200 mg tablet 200 mg PO DAILY Follow-up/Referrals: Ila Valencia MD [Primary Care Provider, Family Practice] Time of Disposition: 18:20
== END 2024-11-10 18:51 | disposition home or self-care (01) ==
PROVIDERS: PCP Family Medicine
DX: L03.032 Cellulitis of left toe (principal); F17.290 Nicotine dependence, other tobacco product, uncomplicated; E28.2 Polycystic ovarian syndrome
CPT/HCPCS: 99213; G0463

== ENCOUNTER 2024-11-25 19:00 | Emergency (ER) | payer OTHER, SELFPAY ==
[2024-11-25 19:07] VITALS: BP 117/71; PULSE 90; RESP 18; TEMP 36.5; O2SAT 99
--- NOTE | 2024-11-25 19:08 | ED_ITS ---
HPI - Headache General Chief Complaint: Headache Stated Complaint: Joint pain/Migraine patient presents to the Express Care complaints persist that is been present for 4-5 days. Patient reports using Tylenol ibuprofen because other medications specifically for migraines do not work well for her. Patient does currently take Ellipta daily to prevent her migraines but noted this is not working well patient has been on many preventative medications that do not help with migraines. Patient noted she has had Toradol in the past to help get over a migraine, Requesting this in clinic today. Patient does also note today to light and nausea. No changes from previous episodes of migraine in the past. Patient does also report increased joint pain and feels like a flare-up of her autoimmune disease. Denies any new numbness, tingling dizziness shortness of Related Data Home Medications ?Medication ?Instructions ?Recorded ?Confirmed ?Last Taken ?Type atogepant 30 mg tablet (Qulipta) 30 mg PO DAILY 10/20/24 Unknown History hydroxychloroquine 200 mg tablet 200 mg PO DAILY 10/0610/20/24 Unknown History Allergies Allergy/AdvReac Type Severity Reaction Status Date / Time [id number] Antimigraine AdvReac Joint Pain Verified 11/25/24 19:06 Agents Review of Systems Constitutional: Constitutional: Reports as per HPI, Denies chills, Denies fatigue, Denies fever(s) and Denies weakness Eyes: Eyes: Reports as per HPI and Reports photophobia ENT: Reports as per HPI, Denies vertigo, Denies dizziness and Denies nasal congestion Cardiovascular: Cardiovascular: Reports no additional cardiovascular complaints Respiratory: Respiratory: Reports no additional respiratory complaints Gastrointestinal: Gastrointestinal: Reports as per HPI, Denies diarrhea, Reports nausea and Denies vomiting Genitourinary: Genitourinary: Reports no additional female genitourinary complaints Musculoskeletal: Musculoskeletal: Reports as per HPI, Reports arthralgias, Reports joint swelling and Reports muscle cramps Integumentary/Breasts: Skin/Breast: Denies pruritus, Denies erythema and Denies rash Neurologic: Reports as per HPI, Denies vertigo, Denies dizziness, Reports headache(s), Denies numbness and Denies weakness Psychiatric: Psychiatric: Reports no additional psychiatric complaints Endocrine: Endocrine: Reports no additional endocrine complaints Hematologic/Lymphatic: Hematologic/Lymphatic: Reports no additional hematologic/lymphatic complaints Allergic/Immunologic: Allergic/Immunologic: Reports no additional allergic/immunologic complaints [facility] Past Medical History Medical History Right hand dominant Kyphosis PCOS (polycystic ovarian syndrome) Depression Anxiety Surgical History Surgical History History of adenectomy Hx of tonsillectomy Family History Family History Mother Hypertension Depression Heart problem Alcoholism Grandparent Asthma Diabetes mellitus Hypertension Cerebrovascular accident Thyroid disorder Social History Social History Smoking status: Current some day smoker Tobacco type: e-cigarettes/vaping Alcohol intake: never Substance use: former Substance use type: marijuana Do You Feel Safe in your Home?: Yes Current Housing: Decline to Answer Concerned About Future Housing: Decline to Answer Difficulty Paying Gas/Electric Bills: Decline to Answer Difficulty Paying for Meds: Decline to Answer Currently Unemployed: Decline to Answer Education: Decline to Answer Difficulty w/ Childcare or Family Care: Decline to Answer Living arrangements: with roommate(s) Occupation/Education: student 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, 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 Gender identity (if verbalized by the patient): Female Sexual Orientation (if Verbalized by the Patient): Straight or Heterosexual Exam Const: General: healthy appearing and no acute distress Nutritional Appearance: well nourished Orientation/consciousness: patient oriented x3 Limitations: no limitations HENMT: Head: normal to inspection Eyes: Conjunctivae: conjunctivae normal Pupils: Equal, round and reactive pupils present EOM: EOMs intact bilaterally Neck: Neck: normal visual inspection and no lymphadenopathy Resp: Effort & Inspection: normal respiratory effort Auscultation: clear to auscultation bilaterally Cardio: Rate: regular rate Rhythm: regular rhythm Skin: General skin exam: normal color Rashes: no rashes Wounds: no wounds Neuro: General: patient oriented x3 and moves all extremities Cranial nerves: Yes Nystagmus not present Speech: normal speech Gait exam (Neuro): Normal gait present Extrem: General: normal to inspection, no clubbing, cyanosis or edema and no pedal edema Psych: Mental Status: mental status grossly normal Affect: normal affect Attitude: cooperative Course Course Level of Care: Express Care Visit Vital Signs Vital signs: Vital Signs Temperature 97.7 F 11/25/24 19:07 Pulse Rate 90 11/25/24 19:07 Respiratory Rate 18 11/25/24 19:07 Blood Pressure 117/71 11/25/24 19:07 Pulse Oximetry 99 11/25/24 19:07 Temperature 97.7 F 11/25/24 19:07 Pulse Rate 90 11/25/24 19:07 Respiratory Rate 18 11/25/24 19:07 Blood Pressure 117/71 11/25/24 19:07 Pulse Oximetry 99 11/25/24 19:07 MDM - Headache MDM Narrative Medical decision making narrative: spoke with patient about options for migraine while at today. Will use Toradol injection was Zofran and sent Zofran to the pharmacy have patient take Benadryl at home since she drove herself to [facility]. Patient aware of signs and symptoms that would need ER evaluation. Spoke with patient about use of prednisone for autoimmune flare up. Speak with meatcutter about flare up practices or need to change medications. The patient was evaluated by myself in the [facility]. History is obtained from patient who is an independent historian and physical exam was performed. Available medical records were reviewed at this time. Exam findings show no acute concerns or changes; patient is non-toxic appearing and is in no distress. Patient is appropriate for outpatient treatment and follow-up. I have evaluated and discussed social determinants of health with the patient that could potentially impact subsequent diagnosis and treatment plans. Differential diagnosis and treatment plan were discussed with the patient. Patient agrees with discussion and after shared medical decision making agrees with plan of care. All questions were answered to the patient's satisfaction. Differential Diagnosis Differential diagnosis: Likely migraine, tension headache, headache and sinusitis Medical Records Attestation: I reviewed the patient's medical records. Discharge Plan Discharge Clinical Impression: Migraine without aura and without status migrainosus, not intractable, Joint pain Patient Disposition: Home Condition: Stable Instructions: Antibiotic Form, Migraine Headache (ED), Arthralgia (ED) Additional Instructions: We have given you a Toradol injection and Zofran here at the [facility] today. I sent Zofran to the pharmacy you may use this every 8 hours as needed for nausea you can continue Tylenol and ibuprofen as directed. Follow-up with primary care physician and/or neurologist for follow-up with migraine treatment options if you notice significant headache loss of vision, worsening dizziness, or any other symptoms related to headache go to the emergency room for further evaluation. We have placed you on prednisone to reduce your joint pain and flare from autoimmune disease. Take this as directed with food. Follow-up with meatcutter if symptoms not improved. Patient Language: Wolof Prescriptions: New prednisone 10 mg tablet 10 mg PO DIRECTED Qty: 18 0RF Rx Instructions: take 3 tablets for 3 days, 2 tablets for 3 days, 1 tablet for 3 days ondansetron 4 mg tablet,disintegrating 4 mg PO Q8H PRN (Reason: nausea and vomiting) Qty: 20 0RF No Action ibuprofen 800 mg tablet 800 mg PO TID PRN (Reason: pain) Qty: 15 0RF mupirocin [Centany] 2 % ointment 1 applic topical BID 7 Days Qty: 22 0RF Qulipta 30 mg tablet 30 mg PO DAILY Wegovy 0.25 mg/0.5 mL pen injector 0.25 mg subcut WEEKLY Qty: 2 1RF hydroxychloroquine 200 mg tablet 200 mg PO DAILY Follow-up/Referrals: PHYSICIAN,CYLINDER DIE MACHINE OPERATOR [Primary Care Provider, Internal Medicine] Time of Disposition: 19:32
[2024-11-25] MEDS: ONDANSETRON HCL ODT 4 MG TABLET 8 MG PO (19:33)
[2024-11-25] MEDS: KETOROLAC (*BKC) 60 MG/2 ML VIAL IM (19:33)
== END 2024-11-25 19:39 | disposition home or self-care (01) ==
PROVIDERS: Emergency Provider Nurse Practitioner Family
DX: G43.009 Migraine without aura, not intractable, without status migrainosus (principal); M25.50 Pain in unspecified joint; F17.290 Nicotine dependence, other tobacco product, uncomplicated; E28.2 Polycystic ovarian syndrome; M35.9 Systemic involvement of connective tissue, unspecified
CPT/HCPCS: 96372; 99213; A9270; G0463; J1885

== ENCOUNTER 2025-02-28 12:20 | Emergency (ER) | payer OTHER, SELFPAY ==
--- NOTE | 2025-02-28 12:40 | ED.LOWEXIN ---
HPI - Extremity Injury (Lower) General Chief Complaint: Extremity Injury, Lower Stated Complaint: sharp pain in thigh; pulled hip muscle? Time Seen by Provider: 02/28/25 12:40 Source: patient Mode of arrival: ambulatory Limitations: no limitations History of Present Illness HPI Narrative: 19 yo F presents with L groin pain for 2 to 3 days. Unsure of injury. Painful at rest and with movement. Has not taken any OTC meds to treat pain. All systems reviewed and negative except as noted above. Related Data Home Medications ?Medication ?Instructions ?Recorded ?Confirmed ?Last Taken ?Type atogepant 30 mg tablet (Qulipta) 30 mg PO DAILY 08/24/24 10/20/24 Unknown History hydroxychloroquine 200 mg tablet 200 mg PO DAILY 10/06/24 10/20/24 Unknown History Allergies Allergy/AdvReac Type Severity Reaction Status Date / Time [id number] Antimigraine AdvReac Joint Pain Verified 02/28/25 12:33 Agents PMFSH Past Medical History Medical History Right hand dominant Kyphosis PCOS (polycystic ovarian syndrome) Depression Anxiety Surgical History Surgical History History of adenectomy Hx of tonsillectomy Family History Family History Mother Hypertension Depression Heart problem Alcoholism Grandparent Asthma Diabetes mellitus Hypertension Cerebrovascular accident Thyroid disorder Social History Social History Smoking status: Current some day smoker Tobacco type: e-cigarettes/vaping Alcohol intake: never Substance use: former Substance use type: marijuana Current Housing: Decline to Answer Concerned About Future Housing: Decline to Answer Difficulty Paying Gas/Electric Bills: Decline to Answer Difficulty Paying for Meds: Decline to Answer Currently Unemployed: Decline to Answer Education: Decline to Answer Difficulty w/ Childcare or Family Care: Decline to Answer Living arrangements: with roommate(s) Occupation/Education: student 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 There is no relevant family history pertinent to the presenting complaint. Exam Narrative: GENERAL: This is a well-nourished, well-developed patient, in no apparent distress. HEAD: normocephalic, atraumatic. EYES: PERRL. Sclera clear/white. Vision is grossly intact. EARS: External ears normal NOSE: External nose normal NECK: Neck supple, non-tender without lymphadenopathy, masses or thyromegaly. CARDIOVASCULAR: Regular rate and rhythm without murmurs, gallops, or rubs. RESPIRATORY: Clear to auscultation. Breath sounds equal bilaterally. No wheezes, rales, or rhonchi. SKIN: warm, Dry, intact with no suspicious lesions or rash, good texture and turgor. NEURO: awake, alert, and oriented to person, place and time. There were no obvious focal neurologic abnormalities. EXTREMITIES: Tenderness to right groin on palpation with increase in pain with left hip abduction. Course Course Level of Care: Express Care Visit Vital Signs Vital signs: Reviewed MDM MDM Narrative Medical decision making narrative: will treat left groin strain with ibuprofen and Robaxin. Patient agrees with plan of care. Differential Diagnosis Differential Diagnosis: Differential diagnostic considerations for extremity problems include sprain/strain, fracture, DVT, herpes zoster, gout, cellulitis, superficial thrombophlebitis, physiologic edema.??? Discharge Plan Discharge Clinical Impression: Strain of left groin Patient Disposition: Home Condition: Stable Instructions: Groin Strain (ED) Additional Instructions: take medication as prescribed. This medication may make you drowsy. Take ibuprofen every 6-8 hours as needed for pain. Alternate between ice and heat. Follow-up with your primary care physician if pain is not improving. Patient Language: Faroese Prescriptions: New methocarbamol 750 mg tablet 750 mg PO Q8H PRN (Reason: muscle pain/spasm) Qty: 30 0RF No Action ibuprofen 800 mg tablet 800 mg PO TID PRN (Reason: pain) Qty: 15 0RF mupirocin [Centany] 2 % ointment 1 applic topical BID 7 Days Qty: 22 0RF prednisone 10 mg tablet 10 mg PO DIRECTED Qty: 18 0RF Rx Instructions: take 3 tablets for 3 days, 2 tablets for 3 days, 1 tablet for 3 days ondansetron 4 mg tablet,disintegrating 4 mg PO Q8H PRN (Reason: nausea and vomiting) Qty: 20 0RF Qulipta 30 mg tablet 30 mg PO DAILY Wegovy 0.25 mg/0.5 mL pen injector 0.25 mg subcut WEEKLY Qty: 2 1RF hydroxychloroquine 200 mg tablet 200 mg PO DAILY Follow-up/Referrals: Ila Valencia MD [Primary Care Provider, [facility]] Time of Disposition: 12:52
== END 2025-02-28 12:56 | disposition home or self-care (01) ==
PROVIDERS: Emergency Provider Nurse Practitioner Family; PCP Family Medicine
DX: S39.011A Strain of muscle, fascia and tendon of abdomen, initial encounter (principal); X58.XXXA Exposure to other specified factors, initial encounter; E28.2 Polycystic ovarian syndrome; F17.290 Nicotine dependence, other tobacco product, uncomplicated
CPT/HCPCS: 99213; G0463